=== PATIENT | female | born 1955 | race Caucasian/White ===

== ENCOUNTER 2020-12-17 05:52 | Observation (INO) ==
[2020-12-17] MEDS ORDERED: Buffered Lidocaine 1% SYRIN 1 ml INTRADERM ONE ×2 (06:00→06:19)
[2020-12-17] MEDS ORDERED: Lactated Ringers 1000 ml BAG 1,000 ML IV SCH (06:00)
[2020-12-17] MEDS ORDERED: Heparin 5000 UNITS/ML 1 mL VIAL ONE (06:18)
[2020-12-17] MEDS ORDERED: Clindamycin 900 MG/D5W BAG 900 MG/50 ML BAG IVPB ONE (06:18)
[2020-12-17] MEDS ORDERED: Propofol 10 mg/ml 100 ML BTL 100 ML ONE (07:11)
[2020-12-17] MEDS ORDERED: Ketamine HCL 50 mg/ml 10 ml VIAL (500 MG) ONE (07:12)
[2020-12-17] MEDS ORDERED: ISOSULFAN BLUE 1% 5 ML VIAL 10 MG/ML SUBCUT ONE (07:13)
[2020-12-17] MEDS ORDERED: Bupivacaine 0.5% SDV PF 30ML VIAL ONE (07:13)
[2020-12-17] MEDS ORDERED: Rocuronium 50 mg VIAL 10 mg/ml 5 ml VIAL (50 mg) ONE (07:19)
[2020-12-17] MEDS ORDERED: Lidocaine 2% PF 5 ML VIAL ONE (07:19)
[2020-12-17] MEDS ORDERED: Propofol 10 MG/ML 20 ML BTL ONE (07:19)
[2020-12-17] MEDS ORDERED: Midazolam 2 mg/2 ml VIAL 1 mg/ml 2 ml VIAL (2 mg) ONE (07:21)
[2020-12-17] MEDS ORDERED: fentaNYL 100 mcg/2 ml 50 MCG/ML VIAL ONE ×2 (07:22→11:41)
[2020-12-17] MEDS ORDERED: HYDROmorphone 1 MG/1 ML SYRINGE IV PRN (08:38)
[2020-12-17] MEDS ORDERED: Ondansetron 4 mg VIAL 2 MG/ML 2 ml VIAL IV PRN (08:38)
[2020-12-17] MEDS ORDERED: Naloxone 0.4 mg VIAL 0.4 mg/ml 1 ml VIAL IV PRN (08:38)
[2020-12-17] MEDS ORDERED: Acetaminophen IV 1 GM/100ML 1,000 MG/100 ML VIAL IVPB PRN (08:38)
[2020-12-17] MEDS ORDERED: DiMENhydriNATE IV 50 mg/ml 1 ml VIAL IV PUSH PRN (08:38)
[2020-12-17] MEDS ORDERED: Acetaminophen IV 1 GM/100ML 100 ML ONE (08:44)
[2020-12-17] MEDS ORDERED: Dexamethasone IV 4 MG/ML VIAL 1 ml VIAL ONE (10:11)
[2020-12-17] MEDS ORDERED: Ondansetron 4 mg VIAL 2 MG/ML 2 ml VIAL ONE (10:11)
[2020-12-17] MEDS ORDERED: HYDROmorphone 1 MG/1 ML SYRINGE ONE ×2 (11:03→11:41)
[2020-12-17] MEDS ORDERED: HYDROcodone/ACETAMIN 5/325 mg TAB PO PRN (11:17)
[2020-12-17] MEDS ORDERED: Benzocaine/Menthol LOZ PO PRN (11:21)
[2020-12-17] MEDS: fentaNYL 100 mcg/2 ml 50 MCG/ML VIAL IV PRN ×3 (11:43→12:18)
[2020-12-17] MEDS: Clindamycin 600 MG/D5W BAG 600 MG/50 ML BAG IV SCH (16:47)
[2020-12-17] MEDS ORDERED: Lactated Ringers 1000 ml BAG 1,000 ML IV ONE (17:57)
[2020-12-17] MEDS: Potassium Chloride LIQUID 20 MEQ/15 ML LIQUID PO SCH (21:35)
[2020-12-18] MEDS: Clindamycin 600 MG/D5W BAG 600 MG/50 ML BAG IV SCH ×2 (00:37→08:37)
[2020-12-18 08:09] VITALS: BP 91/47
[2020-12-18] MEDS: Potassium Chloride LIQUID 20 MEQ/15 ML LIQUID PO SCH (08:39)
[2020-12-20] MEDS ORDERED: Scopolamine PATCH Remove NOTE PATCH OFF SCH (12:00)
== END 2020-12-18 09:55 | disposition home or self-care (01) ==
LOC: OR 05:52 → SSU 05:52
PROVIDERS: ADMIT Student in an Organized Health Care Education/Training Program; ATTEND Internal Medicine